=== PATIENT | male | born 1955 | race African-American/Black ===

== ENCOUNTER 2017-03-08 09:12 | Emergency (ER) | payer MEDICAID ==
[~2017-03-08] VITALS: Ht 152.4 cm; Wt 77.0 kg
[2017-03-08 10:23] VITALS: BP 149/76
[2017-03-08] MEDS ORDERED: KETOROLAC 60MG/2ML VIAL IM ONE (10:30)
== END 2017-03-08 10:43 | disposition home or self-care (01) ==
LOC: ER 09:43
DX: M54.5 Low back pain (principal); M79.606 Pain in leg, unspecified; I10 Essential (primary) hypertension; R07.89 Other chest pain; V43.52XA Car driver injured in collision with other type car in traffic accident, initial encounter; Y93.9 Activity, unspecified; Y92.410 Unspecified street and highway as the place of occurrence of the external cause
CPT/HCPCS: 96372; 99283; J1885

== ENCOUNTER 2019-03-13 16:06 | Emergency (ER) | payer MEDICAID ==
[~2019-03-13] VITALS: Ht 167.6 cm; Wt 83.0 kg
[2019-03-13] MEDS ORDERED: HYDROCODONE/ACETAMINOPHEN 5/325MG TABLET PO ONE (19:00)
[2019-03-13] MEDS ORDERED: ONDANSETRON 4MG ODT PO ONE (19:00)
[2019-03-13] MEDS ORDERED: IBUPROFEN 800MG TABLET PO ONE (19:00)
[2019-03-13 19:09] VITALS: BP 156/71
== END 2019-03-13 21:52 | disposition home or self-care (01) ==
LOC: ER 16:06
DX: M25.532 Pain in left wrist (principal); M54.2 Cervicalgia; M25.562 Pain in left knee; I10 Essential (primary) hypertension; M54.9 Dorsalgia, unspecified; V49.09XA Driver injured in collision with other motor vehicles in nontraffic accident, initial encounter; Y93.89 Activity, other specified; Y92.89 Other specified places as the place of occurrence of the external cause; Y99.8 Other external cause status
CPT/HCPCS: 29125; 72070; 72100; 72125; 73110; 73562; 99284; Q0162; A4565

== ENCOUNTER 2023-04-01 06:24 | Emergency (ER) | payer MEDICAID, MEDICARE ==
[~2023-04-01] VITALS: Ht 160 cm; Wt 66.0 kg
[2023-04-01 06:51] VITALS: O2SAT 100
[2023-04-01 07:35] LABS: BASOPHILS % 0.1 % (0.0-2.0); HEMOGLOBIN. 13.9 g/dL (14.0-18.0); LYMPHOCYTES % 12.5 % (20.0-50.0); MEAN CORPUSCULAR HGB CONC 33.1 g/dL (31.0-37.0); MEAN CORPUSCULAR VOLUME 87.6 fL (80.0-94.0); MEAN PLATELET VOLUME 7.3 fl (7.4-10.4); NEUTROPHILS % 82.4 % (40.0-76.0); PLATELET 239 x1000/uL (130-400); RED BLOOD CELL COUNT 4.79 mill/uL (4.7-6.1); RED CELL DISTRIBUTION WIDTH 12.9 % (11.6-14.6); WHITE BLOOD COUNT 5.7 x1000/uL (4.5-11.0)
[2023-04-01 08:19] LABS: ALANINE AMINOTRANSFERASE 27 IU/L (10-49); ALBUMIN 4.8 g/dL (3.2-4.8); ASPARTATE AMINOTRANSFERASE 34 IU/L (<34); BILIRUBIN TOTAL 0.7 mg/dL (0.1-1.0); CALCIUM 9.5 mg/dL (8.7-10.4); CARBON DIOXIDE 29 mEq/L (21-32); CHLORIDE 96 mEq/L (98-107); GLUCOSE 134 mg/dL (70-105); POTASSIUM 3.6 mEq/L (3.5-5.1); PROTEIN TOTAL 7.8 g/dL (6.0-8.3); SODIUM 134 mEq/L (136-145); TROPONIN I HIGH SENSITIVITY 9 ng/L (3.0-53); UREA NITROGEN BLOOD 9 mg/dL (9-23)
[2023-04-01] MEDS ORDERED: MAGNESIUM/ALUMINUM HYDROXIDE/SIMETHICONE 30ML UDC PO STA (10:11)
[2023-04-01] MEDS ORDERED: FAMOTIDINE 20MG/2ML VIAL IV STA (10:11)
[2023-04-01] MEDS ORDERED: ONDANSETRON HCL 4MG/2ML INJ IV STA (10:11)
[2023-04-01] MEDS ORDERED: SODIUM CHLORIDE 0.9% 1,000 ML IV ONE (10:15)
[2023-04-01] MEDS ORDERED: MAGNESIUM/ALUMINUM HYDROXIDE/SIMETHICONE 30ML UDC PO NR (12:15)
[2023-04-01] MEDS ORDERED: FAMOTIDINE 20MG/2ML VIAL IV NR (12:15)
[2023-04-01] MEDS ORDERED: ONDANSETRON HCL 4MG/2ML INJ IV NR ×2 (12:15→12:30)
[2023-04-01] MEDS ORDERED: FAMO-135 MT (13:23)
[2023-04-01 13:45] VITALS: BP 147/45; PULSE 91; RESP 21; TEMP 98.2
== END 2023-04-01 13:56 | disposition home or self-care (01) ==
LOC: ER 06:24
DX: K29.70 Gastritis, unspecified, without bleeding (principal); I10 Essential (primary) hypertension
CPT/HCPCS: 99285; 96374; 71045; 96361; 96375; 80053; 83690; 85025; 84484; 36415; 93005; J3490; J2405; J7030

== ENCOUNTER 2025-01-27 22:59 | Emergency (ER) | payer MEDICARE ==
[~2025-01-27] VITALS: Ht 165.1 cm; Wt 76.6 kg
[~2025-01-27 22:59] MED LIST: FAMO-135 MT
[2025-01-27 23:11] VITALS: O2SAT 98
[2025-01-28] MEDS: CYCLOBENZAPRINE 10MG TABLET PO ONE (02:44)
[2025-01-28] MEDS: ACETAMINOPHEN 500MG TABLET PO ONE (02:44)
[2025-01-28 03:57] VITALS: BP 150/70; PULSE 72; RESP 16; TEMP 36.7; O2SAT 99
[2025-01-28] MEDS ORDERED: IBUP-1455 MT (03:57)
[2025-01-28] MEDS ORDERED: CYCL10TA21 MT (03:57)
== END 2025-01-28 04:04 | disposition home or self-care (01) ==
LOC: ER 23:20
DX: M54.2 Cervicalgia (principal); M54.50 Low back pain, unspecified; F12.90 Cannabis use, unspecified, uncomplicated; I10 Essential (primary) hypertension
CPT/HCPCS: 72131; 99284